=== PATIENT | male | born 1955 | race Caucasian/White ===

== ENCOUNTER 2021-08-04 10:53 | Outpatient (CLI) | payer MEDICARE, OTHER ==
[2021-08-04 21:45] LABS: SARS-CoV-2 PCR by NAA Not Detected (NotDetected)
== END 2021-08-04 10:54 | disposition home or self-care (01) ==
LOC: CSHLAB 10:53
PROVIDERS: ATTEND Internal Medicine Gastroenterology
DX: Z20.822 Contact with and (suspected) exposure to COVID-19 (principal)
CPT/HCPCS: U0003; U0005

== ENCOUNTER 2021-08-09 06:11 | Day surgery (SDC) | payer MEDICARE, OTHER ==
[2021-08-04 16:12] VITALS: BMI 28.8
[2021-08-09] MEDS ORDERED: Lidocaine 1% MPF 2 ML VIAL ONE (07:49)
[2021-08-09] MEDS ORDERED: PROPOFOL 40 ML ONE (08:49)
[2021-08-09] MEDS ORDERED: Lidocaine 1% PF 5 ML VIAL ONE (08:49)
== END 2021-08-09 09:58 | disposition home or self-care (01) ==
LOC: CSHSDC 06:11
PROVIDERS: ATTEND Internal Medicine Gastroenterology
PROC: 0DJD8ZZ Inspection of Lower Intestinal Tract, Via Natural or Artificial Opening Endoscopic (ICD-10-PCS; principal; 2021-08-09)
DX: Z12.11 Encounter for screening for malignant neoplasm of colon (principal); Z86.010 Personal history of colon polyps; K57.30 Diverticulosis of large intestine without perforation or abscess without bleeding; M10.9 Gout, unspecified; E11.9 Type 2 diabetes mellitus without complications; E78.5 Hyperlipidemia, unspecified
CPT/HCPCS: J2704